=== PATIENT | male | born 1995 | race African-American/Black ===

== ENCOUNTER 2019-09-19 15:25 | Emergency (ER) | payer MEDICAID ==
[~2019-09-19] VITALS: Ht 167.6 cm; Wt 66.0 kg
[2019-09-19 16:52] VITALS: BP 110/65
[2019-09-19] MEDS ORDERED: IBUPROFEN 400MG TABLET PO ONE (17:45)
[2019-09-19] MEDS ORDERED: SILVER SULFADIAZINE 1% CREAM 25GM TOP ONE (18:30)
== END 2019-09-19 18:40 | disposition home or self-care (01) ==
LOC: ER 15:25
DX: T24.001A Burn of unspecified degree of unspecified site of right lower limb, except ankle and foot, initial encounter (principal); S81.801A Unspecified open wound, right lower leg, initial encounter; X10.2XXA Contact with fats and cooking oils, initial encounter; X11.8XXA Contact with other hot tap-water, initial encounter; Y93.G3 Activity, cooking and baking; Y92.090 Kitchen in other non-institutional residence as the place of occurrence of the external cause; F12.90 Cannabis use, unspecified, uncomplicated
CPT/HCPCS: 16020; 99283; 99284